=== PATIENT | female | born 1985 | race Caucasian/White ===

== ENCOUNTER 2023-01-28 18:19 | Emergency (ER) | payer SELFPAY | END 2023-01-28 19:16 | disposition left against medical advice (07) | LOC: MW.ED 18:19 | DX: Z53.21 Procedure and treatment not carried out due to patient leaving prior to being seen by health care provider (principal) ==

== ENCOUNTER 2023-01-29 11:39 | Day surgery (SDC) | payer SELFPAY ==
[2023-01-29] MEDS ORDERED: ceFAZolin 1 GM in Sodium Chloride 0.9% 50 ML IV ONE (13:43)
[2023-01-29] MEDS ORDERED: Sulfamethoxazole/Trimethoprim 800-160 MG Tab PO ONE (13:44)
[2023-01-29] MEDS ORDERED: Sodium Chloride 0.9% 10 ML Syringe FLUSH PRN (14:32)
[2023-01-29] MEDS ORDERED: Sodium Chloride 0.9% 2.5 ML Syringe FLUSH PRN (14:32)
[2023-01-29] MEDS ORDERED: Sodium Chloride 0.9% 20 ML SDV IV PRN (14:32)
[2023-01-29] MEDS ORDERED: Lactated Ringers 1,000 ML IV SCH (14:45)
[2023-01-29] MEDS ORDERED: Clindamycin Phosphate in D5W 600 MG in Premix Bag 1 BAG IV SCH ×2 (14:45)
[2023-01-29] MEDS ORDERED: propofoL 50 ML ONE (15:32)
[2023-01-29] MEDS ORDERED: Propofol 200 MG/20 ML SDV ONE (15:32)
[2023-01-29] MEDS ORDERED: fentaNYL 250 MCG/5 ML SDV ONE (15:32)
[2023-01-29] MEDS ORDERED: Bupivacaine 0.5% 30 ML SDV ONE (16:46)
[2023-01-29] MEDS ORDERED: Ondansetron 4 MG/2 ML SDV IVPUSH PRN (17:19)
[2023-01-29] MEDS ORDERED: HYDROmorphone 2 MG/ML Syringe IVPUSH PRN (17:19)
[2023-01-29] MEDS ORDERED: Acetaminophen/oxyCODONE 325-5 MG Tab PO PRN (17:19)
[2023-01-29] MEDS ORDERED: diphenhydrAMINE 25 MG Cap PO PRN (17:19)
[2023-01-29] MEDS ORDERED: LORazepam 1 MG Tab PO PRN (17:21)
[2023-01-29] MEDS ORDERED: Midazolam 1 MG/ML 2 ML SDV ONE (17:27)
[2023-01-29] MEDS ORDERED: Ketorolac 30 MG/ML SDV IVPUSH SCH (17:30)
[2023-01-29] MEDS ORDERED: Morphine 10 MG/ML SDV ONE (17:42)
[2023-01-29] MEDS ORDERED: dexmedeTOMIDine HCl 200 MCG/2 ML SDV ONE (17:42)
[2023-01-29] MEDS ORDERED: Water For Injection, Sterile 20 ML ONE (17:42)
[2023-01-29] MEDS ORDERED: Ondansetron 4 MG/2 ML SDV ONE (17:42)
[2023-01-29] MEDS ORDERED: Sugammadex Sodium 200 MG/2 ML VIAL ONE (17:42)
[2023-01-29] MEDS ORDERED: Ketorolac 30 MG/ML SDV IM ONE (17:49)
[2023-01-29] MEDS ORDERED: LORazepam 2 MG/ML SDV IM PRN (17:49)
[2023-01-29] MEDS ORDERED: Rocuronium Bromide 50 MG/5 ML Syringe ONE (18:09)
[2023-01-29] MEDS: Morphine 4 MG/ML Syringe IM PRN ×2 (18:37→22:33)
[2023-01-29] MEDS ORDERED: Scopalamine 1mg/3day Transdermal Patch TOP ONE ×2 (20:23→21:00)
[2023-01-29] MEDS ORDERED: Multivitamin Tab PO SCH (21:00)
[2023-01-29] MEDS: Clindamycin HCl 150 MG Cap PO SCH (23:23)
[2023-01-30] MEDS: Clindamycin HCl 150 MG Cap PO SCH (05:55)
[2023-01-30] MEDS: Morphine 4 MG/ML Syringe IM PRN (09:26)
[2023-02-01] MEDS ORDERED: Desflurane 240 ML Bottle ONE (09:25)
== END 2023-01-30 11:05 | disposition home or self-care (01) ==
LOC: MW.ED 11:39 → MW.SDS 14:23 → MW.MS 18:14 → MW.SDS 01-30 11:05
PROVIDERS: ATTEND Surgery
DX: N61.1 Abscess of the breast and nipple (principal); F41.9 Anxiety disorder, unspecified; F17.210 Nicotine dependence, cigarettes, uncomplicated; Z79.899 Other long term (current) drug therapy; Z88.1 Allergy status to other antibiotic agents; Z91.041 Radiographic dye allergy status
CPT/HCPCS: 10060; 19020; 87070; 87075; 87077; 87205; 99284; A9270; J1885; J2060; J2250; J2270; J2405; J2704; J3010; J3490; 00400; 99283; J0665

== ENCOUNTER 2023-03-31 19:25 | Emergency (ER) | payer SELFPAY ==
[2023-03-31 20:52] LABS: CORONAVIRUS COVID-19 NAA NEGATIVE (NEGATIVE); INFLUENZA A NAA NEGATIVE (NEGATIVE); INFLUENZA B NAA NEGATIVE (NEGATIVE)
[2023-03-31] MEDS ORDERED: Ondansetron 4 MG Tab.DIS PO ONE (20:54)
[2023-03-31] MEDS ORDERED: Sodium Chloride 0.9% 2.5 ML Syringe FLUSH PRN (21:12)
[2023-03-31] MEDS ORDERED: Sodium Chloride 0.9% 10 ML Syringe FLUSH PRN (21:12)
[2023-03-31] MEDS ORDERED: diphenhydrAMINE 50 MG/ML SDV IVPUSH ONE ×2 (21:12→23:39)
[2023-03-31] MEDS ORDERED: Sodium Chloride 0.9% 1,000 ML IV ONE (21:12)
[2023-03-31] MEDS ORDERED: methylPREDNISolone Sodium Succinate 125 MG/2 ML SDV IVPUSH ONE (21:12)
[2023-03-31] MEDS ORDERED: Metoclopramide 10 MG/2 ML SDV IVPUSH ONE (21:12)
[2023-03-31 21:29] LABS: BASOPHILS ABSOLUTE AUTO 0.07 K/uL (0.00-0.20); BASOPHILS PERCENT AUTO 0.7 % (0.0-1.0); EOSINOPHILS ABSOLUTE AUTO 0.24 K/uL (0.00-0.45); EOSINOPHILS PERCENT AUTO 2.4 % (0.0-6.0); HEMATOCRIT 40.9 % (37.0-47.0); HEMOGLOBIN 14.3 g/dL (12.0-16.0); IMMATURE GRAN ABSOLUTE AUTO 0.05 K/uL (0.00-0.05); IMMATURE GRAN PERCENT AUTO 0.5 % (0.0-0.4); LYMPHOCYTES ABSOLUTE AUTO 2.74 K/uL (1.00-4.80); LYMPHOCYTES PERCENT AUTO 27.5 % (24.0-44.0); MEAN CORPUSCULAR HEMOGLOBIN 28.5 pg (28.0-32.0); MEAN CORPUSCULAR VOLUME 81.6 fL (83.0-99.0); MEAN PLATELET VOLUME 11.5 fL (9.4-12.3); MONOCYTES ABSOLUTE AUTO 0.77 K/uL (0.00-0.80); MONOCYTES PERCENT AUTO 7.7 % (0.0-8.0); NEUTROPHILS ABSOLUTE AUTO 6.08 K/uL (1.80-7.70); NEUTROPHILS PERCENT AUTO 61.2 % (41.0-71.0); PLATELET COUNT,PLT 344 K/uL (150-400); RED BLOOD CELL COUNT 5.01 M/uL (4.10-5.30); WHITE BLOOD CELL COUNT,WBC 9.95 K/uL (3.9-11.3)
[2023-03-31 21:44] LABS: INR 0.93 (0.86-1.11); PTT,PARTIAL THROMBOPLSTIN TIME 29.6 SEC (23.9-30.7)
[2023-03-31 21:52] LABS: A/G RATIO 0.9 (0.9-1.6); ALBUMIN 3.4 g/dL (3.4-5.0); BILIRUBIN TOTAL 0.4 mg/dL (0.2-1.0); CALCIUM 8.6 mg/dL (8.5-10.1); CREATININE 0.8 mg/dL (0.6-1.0); EST CRCL DRUG DOSING (CG) 71.95 mL/min; POTASSIUM,K 3.8 mmol/L (3.5-5.1); PROTEIN TOTAL,TP 7.3 g/dL (6.4-8.2)
[2023-03-31] MEDS ORDERED: Aspirin 81 MG Tab.Chew PO ONE (22:46)
[2023-03-31] MEDS ORDERED: Hydrocortisone Sodium Succinate 100 MG/2 ML SDV IVPUSH ONE (23:38)
== END 2023-04-01 01:00 ==
LOC: MW.ED 19:25
DX: G45.9 Transient cerebral ischemic attack, unspecified (principal); J00 Acute nasopharyngitis [common cold]; F17.210 Nicotine dependence, cigarettes, uncomplicated; Z88.1 Allergy status to other antibiotic agents; Z91.041 Radiographic dye allergy status; Z20.822 Contact with and (suspected) exposure to COVID-19
CPT/HCPCS: 0240U; 36415; 70450; 71045; 80053; 82947; 85025; 85610; 85730; 93005; 96374; 96375; 99291; A9270; J1200; J1720; J2765; J2930; J3490; J7030; 93010

== ENCOUNTER 2023-04-17 16:12 | Emergency (ER) | payer SELFPAY ==
[2023-04-17] MEDS: traMADol 50 MG Tab PO STA (18:39)
== END 2023-04-17 19:03 | disposition home or self-care (01) ==
LOC: MW.ED 16:12
DX: N64.4 Mastodynia (principal); F17.210 Nicotine dependence, cigarettes, uncomplicated; Z88.1 Allergy status to other antibiotic agents; Z91.041 Radiographic dye allergy status; Z79.899 Other long term (current) drug therapy
CPT/HCPCS: 99283; A9270

== ENCOUNTER 2023-06-04 01:30 | Emergency (ER) | payer BC | END 2023-06-04 02:05 | disposition home or self-care (01) | LOC: MW.ED 01:30 | DX: J34.89 Other specified disorders of nose and nasal sinuses (principal); E78.00 Pure hypercholesterolemia, unspecified; Z91.041 Radiographic dye allergy status; Z88.1 Allergy status to other antibiotic agents; Z79.899 Other long term (current) drug therapy; Z75.8 Other problems related to medical facilities and other health care | CPT/HCPCS: 99281; 99282 ==

== ENCOUNTER 2023-09-01 12:55 | Emergency (ER) | payer BC ==
[2023-09-01 13:28] LABS: BASOPHILS ABSOLUTE AUTO 0.07 K/uL (0.00-0.20); BASOPHILS PERCENT AUTO 0.8 % (0.0-1.0); EOSINOPHILS ABSOLUTE AUTO 0.71 K/uL (0.00-0.45); EOSINOPHILS PERCENT AUTO 7.9 % (0.0-6.0); HEMOGLOBIN 13.6 g/dL (12.0-16.0); IMMATURE GRAN ABSOLUTE AUTO 0.06 K/uL (0.00-0.05); IMMATURE GRAN PERCENT AUTO 0.7 % (0.0-0.4); LYMPHOCYTES ABSOLUTE AUTO 2.51 K/uL (1.00-4.80); LYMPHOCYTES PERCENT AUTO 27.8 % (24.0-44.0); MEAN CORPUSCULAR HEMOGLOBIN 28.1 pg (28.0-32.0); MEAN CORPUSCULAR VOLUME 82.6 fL (83.0-99.0); MEAN PLATELET VOLUME 11.3 fL (9.4-12.3); MONOCYTES ABSOLUTE AUTO 0.61 K/uL (0.00-0.80); MONOCYTES PERCENT AUTO 6.8 % (0.0-8.0); NEUTROPHILS ABSOLUTE AUTO 5.07 K/uL (1.80-7.70); PLATELET COUNT,PLT 328 K/uL (150-400); RED BLOOD CELL COUNT 4.84 M/uL (4.10-5.30); WHITE BLOOD CELL COUNT,WBC 9.03 K/uL (3.9-11.3)
[2023-09-01] MEDS: Acetaminophen 500 MG Tab PO STA (13:40)
[2023-09-01] MEDS: oxyCODONE 5 MG Tab PO STA (13:40)
[2023-09-01 13:43] LABS: INR 0.96 (0.86-1.11); PTT,PARTIAL THROMBOPLSTIN TIME 32.4 SEC (23.9-30.7)
[2023-09-01 13:56] LABS: A/G RATIO 0.9 (0.9-1.6); ALANINE AMINOTRANSFERASE,ALT 86 IU/L (14-63); ALBUMIN 3.4 g/dL (3.4-5.0); ALKALINE PHOSPHATASE 68 U/L (46-116); ASPARTATE AMNIOTRANSFERASE,AST 50 IU/L (15-37); BILIRUBIN TOTAL 0.4 mg/dL (0.2-1.0); BLOOD UREA NITROGEN,BUN 8 mg/dL (7.0-18.0); CALCIUM 8.6 mg/dL (8.5-10.1); CARBON DIOXIDE,CO2 26.8 mmol/L (21.0-32.0); CHLORIDE,CL 103 mmol/L (98-107); CREATININE 0.9 mg/dL (0.6-1.0); EST CRCL DRUG DOSING (CG) 63.95 mL/min; ESTIMATED GFR 84 mL/min (>60); GLUCOSE RANDOM 93 mg/dL (74-106); MAGNESIUM 1.9 mg/dL (1.8-2.4); POTASSIUM,K 3.9 mmol/L (3.5-5.1); PROTEIN TOTAL,TP 7.2 g/dL (6.4-8.2); SODIUM,NA 137 mmol/L (136-145)
[2023-09-01] MEDS: Sodium Chloride 0.9% 1,000 ML IV STA ×2 (15:52→17:18)
[2023-09-01] MEDS: droPERidol 5 MG/2 ML SDV IVPUSH STA (15:52)
[2023-09-01] MEDS: diphenhydrAMINE 50 MG/ML SDV IVPUSH STA (15:52)
== END 2023-09-01 18:22 | disposition home or self-care (01) ==
LOC: MW.ED 12:55
DX: R07.9 Chest pain, unspecified (principal); R51.9 Headache, unspecified; Z91.041 Radiographic dye allergy status; Z75.8 Other problems related to medical facilities and other health care; Z88.1 Allergy status to other antibiotic agents; Z91.030 Bee allergy status; Z79.899 Other long term (current) drug therapy
CPT/HCPCS: 36415; 71046; 80053; 83735; 84484; 85025; 85610; 85730; 93005; 96361; 96374; 96375; 99285; A9270; J1200; J1790; J7030; 93010; 99284

== ENCOUNTER 2023-10-13 08:23 | Day surgery (SDC) | payer BC ==
[~2023-10-13 08:23] MED LIST: Sodium Chloride 0.9% 10 ML Syringe FLUSH PRN; Sodium Chloride 0.9% 2.5 ML Syringe FLUSH PRN; Sodium Chloride 0.9% 20 ML SDV IV PRN
[2023-10-13] MEDS ORDERED: Lidocaine 2% 5 ML SDV ONE ×2 (09:20→10:28)
[2023-10-13] MEDS: Lactated Ringers 1,000 ML IV SCH (09:37)
[2023-10-13] MEDS ORDERED: Midazolam 1 MG/ML 2 ML SDV ONE (10:28)
[2023-10-13] MEDS ORDERED: propofoL 50 ML ONE ×2 (10:28→11:21)
== END 2023-10-13 13:05 | disposition home or self-care (01) ==
LOC: MW.SDS 08:23
PROVIDERS: ATTEND Surgery
DX: R10.9 Unspecified abdominal pain (principal); R19.4 Change in bowel habit; R14.0 Abdominal distension (gaseous); R13.10 Dysphagia, unspecified; K21.9 Gastro-esophageal reflux disease without esophagitis; E78.5 Hyperlipidemia, unspecified; E66.9 Obesity, unspecified; F17.210 Nicotine dependence, cigarettes, uncomplicated; Z88.8 Allergy status to other drugs, medicaments and biological substances; Z91.030 Bee allergy status; Z91.041 Radiographic dye allergy status; Z79.899 Other long term (current) drug therapy; Z68.41 Body mass index [BMI] 40.0-44.9, adult
CPT/HCPCS: 43239; 45380; 81025; J2250; J2704; J7120; 00813; J3490

== ENCOUNTER 2023-10-28 19:24 | Emergency (ER) | payer BC ==
[2023-10-28] MEDS ORDERED: Sodium Chloride 0.9% 10 ML Syringe FLUSH PRN (21:23)
[2023-10-28] MEDS ORDERED: Sodium Chloride 0.9% 2.5 ML Syringe FLUSH PRN (21:23)
[2023-10-28 21:48] LABS: APPEARANCE,URINE CLEAR; BILIRUBIN,URINE NEGATIVE (NEGATIVE); COLOR,URINE YELLOW; GLUCOSE,URINE NEGATIVE (NEGATIVE); KETONES,URINE NEGATIVE (NEGATIVE); LEUKOCYTE ESTERASE,URINE NEGATIVE (NEGATIVE); NITRITE,URINE NEGATIVE (NEGATIVE); OCCULT BLOOD,URINE NEGATIVE (NEGATIVE); PROTEIN,URINE NEGATIVE (NEGATIVE); UROBILINOGEN,URINE 0.2 EU/dL (<2.0)
== END 2023-10-28 22:38 | disposition left against medical advice (07) ==
LOC: MW.ED 19:24
DX: R51.9 Headache, unspecified (principal); R10.9 Unspecified abdominal pain; K21.9 Gastro-esophageal reflux disease without esophagitis; E66.9 Obesity, unspecified; F17.210 Nicotine dependence, cigarettes, uncomplicated; Z79.84 Long term (current) use of oral hypoglycemic drugs; Z79.899 Other long term (current) drug therapy; Z88.1 Allergy status to other antibiotic agents; Z91.041 Radiographic dye allergy status; Z91.030 Bee allergy status; Z75.8 Other problems related to medical facilities and other health care
CPT/HCPCS: 81003; 99284

== ENCOUNTER 2023-12-24 10:10 | Emergency (ER) | payer BC | END 2023-12-24 11:01 | disposition home or self-care (01) | LOC: MW.ED 10:10 | DX: N61.1 Abscess of the breast and nipple (principal); K21.9 Gastro-esophageal reflux disease without esophagitis; E66.9 Obesity, unspecified; Z79.84 Long term (current) use of oral hypoglycemic drugs; Z79.899 Other long term (current) drug therapy; Z88.1 Allergy status to other antibiotic agents; Z91.030 Bee allergy status; Z91.041 Radiographic dye allergy status | CPT/HCPCS: 99283 ==

== ENCOUNTER 2024-02-29 06:43 | Day surgery (SDC) | payer BC ==
[2024-02-29] MEDS: Lactated Ringers 1,000 ML IV SCH (07:20)
[2024-02-29] MEDS ORDERED: Midazolam 1 MG/ML 2 ML SDV ONE (07:23)
[2024-02-29] MEDS ORDERED: Propofol 200 MG/20 ML SDV ONE (07:23)
[2024-02-29] MEDS ORDERED: fentaNYL 100 MCG/2 ML SDV ONE (07:23)
[2024-02-29] MEDS ORDERED: Lidocaine 1% 5 ML VIAL ONE (07:24)
[2024-02-29] MEDS ORDERED: Dexamethasone 4 MG/ML 5 ML MDV ONE (07:24)
[2024-02-29] MEDS ORDERED: Bupivacaine 0.25% 30 ML SDV ONE (07:26)
[2024-02-29] MEDS ORDERED: Metoclopramide 10 MG/2 ML SDV IVPUSH PRN (07:32)
[2024-02-29] MEDS ORDERED: HYDROmorphone 1 MG/ML Syringe IVPUSH PRN (07:32)
[2024-02-29] MEDS ORDERED: Phenylephrine HCl In 0.9% NaCl 1 MG/10 ML Syringe IVPUSH PRN (07:32)
[2024-02-29] MEDS ORDERED: Morphine 2 MG/ML SYRINGE IVPUSH PRN (07:32)
[2024-02-29] MEDS ORDERED: Naloxone 0.4 MG/ML SDV IVPUSH PRN (07:32)
[2024-02-29] MEDS ORDERED: Albuterol 0.083% 2.5 MG/3 ML Neb Soln NEB PRN (07:32)
[2024-02-29] MEDS ORDERED: fentaNYL 50 MCG/ML SDV IVPUSH PRN (07:32)
[2024-02-29] MEDS ORDERED: HYDROmorphone 2 MG/ML Syringe ONE (07:36)
[2024-02-29] MEDS ORDERED: ceFAZolin 2 GM in Sodium Chloride 0.9% 50 ML IV ONE (08:00)
[2024-02-29] MEDS ORDERED: ceFAZolin 1 GM Vial ONE (08:00)
[2024-02-29] MEDS ORDERED: Phenylephrine HCl In 0.9% NaCl 1 MG/10 ML Syringe ONE (08:02)
[2024-02-29] MEDS: Ondansetron 4 MG/2 ML SDV IVPUSH PRN (08:57)
[2024-02-29] MEDS: diphenhydrAMINE 50 MG/ML SDV IVPUSH ONE (09:17)
== END 2024-02-29 10:35 | disposition home or self-care (01) ==
LOC: MW.SDS 06:43
PROVIDERS: ATTEND Orthopaedic Surgery
DX: G56.01 Carpal tunnel syndrome, right upper limb (principal); K21.9 Gastro-esophageal reflux disease without esophagitis; E78.2 Mixed hyperlipidemia; F17.210 Nicotine dependence, cigarettes, uncomplicated
CPT/HCPCS: 64721; 81025; J0665; J0690; J1100; J1171; J1200; J2250; J2371; J2405; J2704; J7120; 01810; J3010; J3490

== ENCOUNTER 2024-05-05 20:58 | Emergency (ER) | payer BC | END 2024-05-05 21:59 | disposition home or self-care (01) | LOC: MW.ED 20:58 | DX: L03.311 Cellulitis of abdominal wall (principal); B37.2 Candidiasis of skin and nail; R19.8 Other specified symptoms and signs involving the digestive system and abdomen; E78.00 Pure hypercholesterolemia, unspecified; Z91.041 Radiographic dye allergy status; Z91.030 Bee allergy status; Z88.1 Allergy status to other antibiotic agents; Z79.899 Other long term (current) drug therapy; Z79.85 Long-term (current) use of injectable non-insulin antidiabetic drugs | CPT/HCPCS: 99283 ==

== ENCOUNTER 2024-11-14 06:32 | Day surgery (SDC) | payer BC ==
[2024-11-14] MEDS: Lactated Ringers 1,000 ML IV SCH (07:54)
[2024-11-14] MEDS ORDERED: ceFAZolin 2 GM in Water For Injection, Sterile 20 ML IVPUSH ONE (08:00)
[2024-11-14] MEDS ORDERED: propofoL 500 MG/50 ML 50 ML ONE ×2 (08:12)
[2024-11-14] MEDS ORDERED: Albuterol 0.083% 2.5 MG/3 ML Neb Soln NEB PRN (08:20)
[2024-11-14] MEDS ORDERED: Ondansetron 4 MG/2 ML SDV IVPUSH PRN (08:20)
[2024-11-14] MEDS ORDERED: Naloxone 0.4 MG/ML SDV IVPUSH PRN (08:20)
[2024-11-14] MEDS: fentaNYL 50 MCG/ML SDV IVPUSH PRN (08:54)
[2024-11-14] MEDS: Ondansetron 4 MG Tab.DIS PO ONE (09:35)
[2024-11-14] MEDS ORDERED: Ondansetron 4 MG/2 ML SDV ONE (10:35)
[2024-11-14] MEDS ORDERED: Dexamethasone 4 MG/ML 5 ML MDV ONE (10:35)
[2024-11-14] MEDS ORDERED: Ketorolac 30 MG/ML SDV ONE (10:35)
== END 2024-11-14 09:45 | disposition home or self-care (01) ==
LOC: MW.SDS 06:32
PROVIDERS: ATTEND Orthopaedic Surgery
DX: G56.03 Carpal tunnel syndrome, bilateral upper limbs (principal); I10 Essential (primary) hypertension; E78.00 Pure hypercholesterolemia, unspecified; F41.1 Generalized anxiety disorder; K21.9 Gastro-esophageal reflux disease without esophagitis; Z79.899 Other long term (current) drug therapy
CPT/HCPCS: 64721; 81025; A9270; J0665; J0690; J1100; J1885; J2405; J2704; J3010; J7120; J1171

== ENCOUNTER 2025-01-20 18:37 | Emergency (ER) | payer BC ==
[2025-01-20 19:07] LABS: APPEARANCE,URINE CLEAR; GLUCOSE,URINE NEGATIVE (NEGATIVE); OCCULT BLOOD,URINE NEGATIVE (NEGATIVE)
[2025-01-20] MEDS ORDERED: Ondansetron 4 MG/2 ML SDV IVPUSH ONE (19:10)
[2025-01-20] MEDS ORDERED: Ketorolac 30 MG/ML SDV IVPUSH ONE (19:11)
[2025-01-20] MEDS ORDERED: Ondansetron 4 MG Tab.DIS PO ONE (19:40)
== END 2025-01-20 19:45 | disposition left against medical advice (07) ==
LOC: MW.ED 18:37
DX: R51.9 Headache, unspecified (principal); R04.0 Epistaxis; R11.10 Vomiting, unspecified; E66.9 Obesity, unspecified; M19.90 Unspecified osteoarthritis, unspecified site; Z79.899 Other long term (current) drug therapy; Z53.20 Procedure and treatment not carried out because of patient's decision for unspecified reasons; Z91.030 Bee allergy status; Z91.041 Radiographic dye allergy status; Z88.8 Allergy status to other drugs, medicaments and biological substances; Z68.41 Body mass index [BMI] 40.0-44.9, adult
CPT/HCPCS: 81003; 99283